=== PATIENT | female | born 1950 | race Caucasian/White ===

== ENCOUNTER 2020-01-23 18:53 | Inpatient (IN) | payer MEDICARE, BC ==
[~2020-01-23] VITALS: Ht 165.1 cm; Wt 70.3 kg
--- NOTE | 2020-01-23 19:07 | NUR ---
Covid swab sent to lab at this time
[2020-01-23] MEDS ORDERED: ACETAMINOPHEN ES 500 MG TABLET ONE (19:22)
--- NOTE | 2020-01-23 19:23 | NUR ---
security at bedside for 1 to 1 sitter
[2020-01-23] MEDS ORDERED: BUSP10TA3 PO (19:29)
[2020-01-23] MEDS ORDERED: NAPROXEN (19:29)
[2020-01-23] MEDS ORDERED: METO50TA16 PO (19:29)
[2020-01-23] MEDS ORDERED: SUMATRIPTAN PO (19:29)
[2020-01-23] MEDS ORDERED: ASPI81TA31 PO (19:29)
[2020-01-23] MEDS ORDERED: SUVO20TA PO (19:29)
[2020-01-23] MEDS ORDERED: HYDR-4354 PO (19:29)
[2020-01-23] MEDS ORDERED: ALPR0.5T8 PO (19:29)
[2020-01-23] MEDS ORDERED: NAPROXEN PO (19:29)
[2020-01-23] MEDS ORDERED: PROC10TA13 PO (19:29)
[2020-01-23] MEDS ORDERED: METO100T14 PO (19:29)
[2020-01-23] MEDS ORDERED: SUMATRIPTAN (19:29)
[2020-01-23] MEDS ORDERED: AMLO2.5T4 PO (19:29)
[2020-01-23] MEDS ORDERED: BUTO10SP NS (19:29)
[2020-01-23] MEDS ORDERED: SPIR25TA6 PO (19:29)
[2020-01-23] MEDS ORDERED: SUMA100T16 PO (19:29)
[2020-01-23] MEDS ORDERED: FLUO20TA28 PO (19:29)
--- NOTE | 2020-01-23 20:45 | NUR ---
meal provided to patient at this time, no signs of acute distress noted
--- NOTE | 2020-01-23 21:07 | NUR ---
report given to Amada RN from [facility]
[2020-01-23] MEDS ORDERED: ACETAMINOPHEN 325 MG TABLET PO ONE (21:15)
[2020-01-23 21:30] VITALS: BP 170/88
[2020-01-23] MEDS ORDERED: BLOOD SUGAR DIAGNOSTIC 1 EACH STRIP VI ONE (21:30)
[2020-01-23] MEDS ORDERED: MAGNESIUM HYDROXIDE 30 ML LIQUID UDC PO PRN (21:30)
[2020-01-23] MEDS ORDERED: MAG HYDROX/AL HYDROX/SIMETH 30 ML LIQUID UDC PO PRN (21:30)
--- NOTE | 2020-01-23 21:38 | NUR ---
Pt. admitted to [facility] , under care of Dr. Katz, report given to gift Belongs List completed and all belongings sent with patient
[2020-01-23] MEDS ORDERED: HYDROCODONE/APAP 10-325 MG TABLET PO SCH (23:00)
[2020-01-23] MEDS: METOPROLOL TARTRATE 50 MG TABLET PO SCH (23:00)
--- NOTE | 2020-01-23 23:31 | NUR ---
GPS/Rn - New admit female brought to [facility]HU from ER via W/C and accompanied by ER staffs. Pt admitted on a 5151 hold for GD under the care of Dr Katz, and Dr Brooks with Dx of Psychosis. Per hold pet attempted SI twice at home after her had a major Stroke. Upon face to face interview, pt denied SI or intent to harm self or others. Per patient I only did that because my was gone and they took him to a [facility] nursing facility and I was just upset and lonely!. Pt said she will never do that again! Patient is a/o x4 and fair insight and thought processing. Patient understand why she is admitted. Hx diagnosis: HTN, Hyperlipidemia, Migraines, Anxiety, Depression. Per ER dept pt c/o headache and Tyl 1000mg was given at about 2030. Pt blood pressure was noted elevated at 170/88, pt said her headache feels better now and PRN order placed for HTN. Will monitor pt while in bed laying. Pt Rights handbook and Advisement given and unit rules explained, pt demonstrated understanding and signed all admission papers.Although pt has denied SI, CFS, HI from admission but due to episode of attempted overdose per 5150 hold. Q/15 minute safety checks initiated and behavioral health referral to be given upon discharge per facility protocol.
--- NOTE | 2020-01-24 04:40 | NUR ---
Pt blood pressure was elevated upon admission. Order was received clarified late and pt fall asleep and refused med. Will recheck in am and monitor.
[2020-01-24 06:52] LABS: BASOPHILS % (AUTO) 0.4 % (0.0-2.0); EOSINOPHILS # (AUTO) 0.1 K/uL (0.0-0.7); EOSINOPHILS % (AUTO) 1.4 % (0.0-7.0); HEMATOCRIT 35.8 % (31.2-41.9); HEMOGLOBIN 12.4 g/dL (10.9-14.3); LYMPHOCYTES # (AUTO) 1.6 K/uL (20.0-40.0); LYMPHOCYTES % (AUTO) 25.8 % (20.5-51.5); MEAN CORPUSCULAR HEMOGLOBIN 32.7 uug (24.7-32.8); MEAN CORPUSCULAR HGB CONC 35 g/dL (32.3-35.6); MEAN CORPUSCULAR VOLUME 94.4 fL (75.5-95.3); MONOCYTES % (AUTO) 15.3 % (0.0-11.0); NEUTROPHILS # (AUTO) 3.6 K/uL (1.8-8.9); NEUTROPHILS % (AUTO) 57.1 % (38.5-71.5); PLATELET COUNT (AUTO) 288 K/uL (179-408); RED BLOOD CELL COUNT(AUTO) 3.79 MIL/uL (3.63-4.92); WHITE BLOOD COUNT (AUTO) 6.3 K/uL (3.8-11.8)
[2020-01-24 07:17] LABS: THYROID STIMULATING HORMONE 2.566 mIU/mL (0.358-3.740)
[2020-01-24 07:19] LABS: BILIRUBIN,TOTAL 0.3 mg/dL (0.2-1.0); CREATININE 0.9 mg/dL (0.6-1.3); PHOSPHOROUS 2.4 mg/dL (2.5-4.9); POTASSIUM 3.9 mmol/L (3.5-5.1); TOTAL PROTEIN, SERUM 6.5 g/dL (6.4-8.2)
[2020-01-24 07:45] VITALS: BP 156/82
[2020-01-24] MEDS: METOPROLOL TARTRATE 50 MG TABLET PO SCH ×2 (08:58→20:03)
[2020-01-24] MEDS: ASPIRIN 81 MG TAB.CHEW PO SCH (08:58)
[2020-01-24] MEDS: SPIRONOLACTONE 25 MG TABLET PO SCH (09:00)
[2020-01-24] MEDS: AMLODIPINE 2.5 MG TABLET PO SCH (09:00)
--- NOTE | 2020-01-24 10:16 | NUR ---
SW Initial Discharge Note: Patient currently resides at [address] [place] [address];([phone]). Currently, she lives alone at home and her is at SNF recovering from a stroke. Patient wants to return back home upon discharge. Patient's brother in law Richard ([phone]) is involved in pt's care. This commercial insurance underwriter will work with the MD, Treatment team, and family to help coordinate proper discharge.
--- NOTE | 2020-01-24 10:20 | NUR ---
Firearms Report: Shower [employer] Pan[employer] Fabricator completed and submitted a [employer] firearms report for 5150 grave disability certification. A copy of report has been placed in patient chart.
--- NOTE | 2020-01-24 10:33 | NUR ---
SW Family Contact: This script writer contacted patient's zvjqszh-um-twi Richard ([phone]) and attempted to discuss collateral, however, Richard was unavailable and mailbox was not set. This script writer will attempt to contact again.
[2020-01-24] MEDS: CLONAZEPAM 0.5 MG TABLET PO PRN ×2 (12:22→18:26)
[2020-01-24] MEDS: ACETAMINOPHEN 325 MG TABLET PO PRN ×2 (12:22→21:18)
[2020-01-24 15:07] LABS: EOSINOPHILS % (MANUAL) 2 % (0-8); LYMPHOCYTES % (MANUAL) 21 % (20-40); MONOCYTES % (MANUAL) 16 % (2-10); NEUTROPHILS % (MANUAL) 61 % (42-75)
[2020-01-24 16:09] VITALS: BP 167/76
[2020-01-24] MEDS: busPIRone 10 MG TABLET PO SCH (17:22)
[2020-01-24] MEDS: FLUOXETINE HCL 20 MG CAPSULE PO SCH (17:24)
--- NOTE | 2020-01-24 17:51 | NUR ---
GPS: Patient has been compliant with medications and medical care. Patient seems depressed but denies SI. Continuing to monitor for safety or increase in depression. None noted at this time.
[2020-01-24 19:37] VITALS: BP 106/58
[2020-01-24 19:50] VITALS: BP 156/86
[2020-01-24 19:52] VITALS: BP 151/86
[2020-01-24] MEDS: TEMAZEPAM 7.5 MG CAPSULE PO PRN (21:19)
[2020-01-25] MEDS: CLONAZEPAM 0.5 MG TABLET PO PRN ×3 (01:42→20:23)
--- NOTE | 2020-01-25 06:30 | NUR ---
GPS - Pt had some anxiety during shift, c/o unable to sleep and PRN was given with some effect. Pt later said she is not feeling well because she is having too much headache and requested Klonopin. Administered and pt was noted resting. Pt also hard migraine headache and said she will like to have Imitrex, informed will notify MD. Cooperative with other care and continue monitor. Pt was agitated and easily irritated frequently.
[2020-01-25 07:30] VITALS: BP 151/78
[2020-01-25] MEDS: FLUOXETINE HCL 20 MG CAPSULE PO SCH (08:23)
[2020-01-25] MEDS: METOPROLOL TARTRATE 50 MG TABLET PO SCH ×2 (08:23→20:18)
[2020-01-25] MEDS: SPIRONOLACTONE 25 MG TABLET PO SCH (08:23)
[2020-01-25] MEDS: ASPIRIN 81 MG TAB.CHEW PO SCH (08:23)
[2020-01-25] MEDS: busPIRone 10 MG TABLET PO SCH ×2 (08:23→16:51)
[2020-01-25] MEDS: AMLODIPINE 2.5 MG TABLET PO SCH (08:25)
[2020-01-25] MEDS: ACETAMINOPHEN 325 MG TABLET PO PRN ×2 (08:36→14:27)
--- NOTE | 2020-01-25 13:21 | NUR ---
SW Family Contact: This senior copywriter contacted patient's gpmefkx-xr-you Richard ([phone]) and discussed treatment and discharge plan. Per Richard, he stated he would want a 48 hour notification to when pt will dc because family will be coming down from [place].
[2020-01-25 16:00] VITALS: BP 137/71
[2020-01-25 20:37] VITALS: BP 149/79
--- NOTE | 2020-01-25 23:00 | NUR ---
Pt trying to find her eyeglasses. Told the pt I didn't see her with her eyeglasses when she asked for her medications and when she asked me to make the temperature warmer earlier. Staff searched for her eyeglasses, moved the bed and checked the bathroom and even trashcan but no eyeglasses found. Will continue to search in the morning.
[2020-01-25] MEDS: TEMAZEPAM 7.5 MG CAPSULE PO PRN (23:22)
--- NOTE | 2020-01-26 06:52 | NUR ---
PT SLEPT 4.30 HOURS. PT IN NO ACUTE DISTRESS. PRESCRIBED MEDICATION GIVEN AND PT TOLERATED IT WELL. PT PLEASANT WHEN APPROACHED. COOPERATIVE WITH CARE. PT GIVEN KLONOPIN AT 2022H FOR ANXIETY. AFTER AN HOUR PT BEHAVIOR AND MOOD IMPROVED. PT TOLERATED IT WELL. PT GIVEN RESTORIL AT 2H PER PT REQUEST AND PT ANXIOUS BECAUSE OF HER EYEGLASSES.PT SLEPT ON AND OFF. STAFF CONTINUOUSLY SEARCHED FOR EYEGLASSES IN THE ROOM, UNDER THE BED, BATHROOM , EVEN IN THE TRASH. SEARCHED ALSO IN OTHER PATIENTS ROOM AND COMMON ROOMS. WE WILL ENDORSE TO INCOMING NURSES FOR CONTINUATION OF SEARCHING FOR HER EYEGLASSES. SAFETY AND COMFORT PROVIDED. ALL NEEDS ARE MET.
[2020-01-26 08:50] VITALS: BP 157/88
[2020-01-26] MEDS: AMLODIPINE 2.5 MG TABLET PO SCH (09:00)
[2020-01-26] MEDS: FLUOXETINE HCL 20 MG CAPSULE PO SCH (09:00)
[2020-01-26] MEDS: ASPIRIN 81 MG TAB.CHEW PO SCH (09:00)
[2020-01-26] MEDS: METOPROLOL TARTRATE 50 MG TABLET PO SCH ×2 (09:01→20:04)
[2020-01-26] MEDS: busPIRone 10 MG TABLET PO SCH ×2 (09:01→16:47)
[2020-01-26] MEDS: SPIRONOLACTONE 25 MG TABLET PO SCH (09:01)
[2020-01-26] MEDS: HYDROCODONE/APAP 10-325 MG TABLET PO PRN ×2 (10:24→20:03)
--- NOTE | 2020-01-26 11:09 | NUR ---
PC Hearing: Patient had her probable cause hearing today and was upheld for danger to self and grave disability.
[2020-01-26 15:05] VITALS: BP 169/84
--- NOTE | 2020-01-26 18:06 | NUR ---
Gps/Dental Equipment Repairer-Patient claimed she does not want to take any sleeping pill tonight , it makes her jittery per pt., but will take ativan po. if necessary.Patient's eye glasses was found , kept by one of her peers. requesting to have her glasses to be kept at the Nurses station or her locker, and will ask for it if needed.
[2020-01-26 20:00] VITALS: BP 169/74
[2020-01-26] MEDS: CLONAZEPAM 0.5 MG TABLET PO PRN (23:01)
[2020-01-27 07:30] VITALS: BP 125/57
[2020-01-27] MEDS: ASPIRIN 81 MG TAB.CHEW PO SCH (09:29)
[2020-01-27] MEDS: FLUOXETINE HCL 20 MG CAPSULE PO SCH (09:29)
[2020-01-27] MEDS: METOPROLOL TARTRATE 50 MG TABLET PO SCH ×2 (09:29→20:48)
[2020-01-27] MEDS: SPIRONOLACTONE 25 MG TABLET PO SCH (09:30)
[2020-01-27] MEDS: busPIRone 10 MG TABLET PO SCH ×2 (09:30→16:56)
[2020-01-27] MEDS: AMLODIPINE 2.5 MG TABLET PO SCH (09:30)
--- NOTE | 2020-01-27 09:33 | NUR ---
Coordination of Care: Patient will follow up with Dr. Vickers located [address] [place], [place] [id number]; ([phone]) on February 13 at 9:45AM. This health underwriter spoke with Jane receptionist/telephone operator who arranged appointment. This health underwriter contacted (psychiatrist) Dr. Miles ([phone]) and left a voicemail.
[2020-01-27] MEDS: ACETAMINOPHEN 325 MG TABLET PO PRN (11:37)
--- NOTE | 2020-01-27 11:47 | NUR ---
[facility] Outpatient Psychiatrist: This resume writer received a phone call from pt's outpatient psychiatrist Dr. Miles ([phone]) who stated she was concerned for pt. She expressed she does not want the pt to be discharged too soon until more stabilized. This resume writer forwarded this information to Dr. Katz.
[2020-01-27 16:00] VITALS: BP 160/58
[2020-01-27] MEDS: HYDROCODONE/APAP 10-325 MG TABLET PO PRN (17:01)
[2020-01-27 20:13] VITALS: BP 150/77
[2020-01-27] MEDS: CLONAZEPAM 0.5 MG TABLET PO PRN (21:00)
[2020-01-27] MEDS: TEMAZEPAM 7.5 MG CAPSULE PO PRN (22:30)
[2020-01-28] MEDS: CLONAZEPAM 0.5 MG TABLET PO PRN ×3 (03:48→20:10)
[2020-01-28 07:30] VITALS: BP_SYST 111; BP_SYST 162; BP_DIAS 66; BP_DIAS 71
[2020-01-28] MEDS: SPIRONOLACTONE 25 MG TABLET PO SCH (08:43)
[2020-01-28] MEDS: ASPIRIN 81 MG TAB.CHEW PO SCH (08:43)
[2020-01-28] MEDS: busPIRone 10 MG TABLET PO SCH ×2 (08:43→16:51)
[2020-01-28] MEDS: AMLODIPINE 2.5 MG TABLET PO SCH (08:44)
[2020-01-28] MEDS: FLUOXETINE HCL 20 MG CAPSULE PO SCH (08:44)
[2020-01-28] MEDS: METOPROLOL TARTRATE 50 MG TABLET PO SCH ×2 (08:45→20:09)
[2020-01-28 16:00] VITALS: BP 148/70
[2020-01-28] MEDS: HYDROCODONE/APAP 10-325 MG TABLET PO PRN (16:52)
[2020-01-28 20:30] VITALS: BP 162/79
[2020-01-28] MEDS: TEMAZEPAM 7.5 MG CAPSULE PO PRN (22:55)
[2020-01-28] MEDS: ACETAMINOPHEN 325 MG TABLET PO PRN (23:38)
--- NOTE | 2020-01-29 06:29 | NUR ---
GPS/RN: Slept 7.30 hours. Very compliant on her medications. Medicated once with Tylenol for complaint of headache. No further complaint presented. BP down to 129/73 this time.
[2020-01-29] MEDS: HYDROCODONE/APAP 10-325 MG TABLET PO PRN ×3 (06:53→20:26)
[2020-01-29 07:30] VITALS: BP 141/71
[2020-01-29] MEDS: METOPROLOL TARTRATE 50 MG TABLET PO SCH ×2 (09:07→20:25)
[2020-01-29] MEDS: AMLODIPINE 2.5 MG TABLET PO SCH (09:07)
[2020-01-29] MEDS: FLUOXETINE HCL 20 MG CAPSULE PO SCH (09:08)
[2020-01-29] MEDS: ASPIRIN 81 MG TAB.CHEW PO SCH (09:08)
[2020-01-29] MEDS: busPIRone 10 MG TABLET PO SCH ×2 (09:08→16:42)
[2020-01-29] MEDS: SPIRONOLACTONE 25 MG TABLET PO SCH (09:08)
[2020-01-29] MEDS: CLONAZEPAM 0.5 MG TABLET PO PRN ×2 (09:09→16:35)
[2020-01-29 10:51] LABS: *BILIRUBIN,URIN NEGATIVE (NEGATIVE); *BLOOD, URINE NEGATIVE (NEGATIVE); *CLARITY,URINE CLEAR (CLEAR); *COLOR,URINE LIGHT YELLOW (YELLOW); *KETONES,URINE NEGATIVE (NEGATIVE); *UROBILINOGEN,URINE 0.2 E.U./dl (NORMAL); LEUKOCYTE ESTERASE ,URINE NEGATIVE (NEGATIVE); NITRITE, URINE NEGATIVE (NEGATIVE); UGLUCOSE NEGATIVE (NEGATIVE)
[2020-01-29] MEDS ORDERED: TRAZODONE 50 MG TABLET PO PRN (12:30)
[2020-01-29 17:03] VITALS: BP 145/80
[2020-01-29 20:00] VITALS: BP 140/72
[2020-01-30 07:30] VITALS: BP 156/73
[2020-01-30] MEDS: METOPROLOL TARTRATE 50 MG TABLET PO SCH ×2 (08:29→20:39)
[2020-01-30] MEDS: SPIRONOLACTONE 25 MG TABLET PO SCH (08:30)
[2020-01-30] MEDS: ASPIRIN 81 MG TAB.CHEW PO SCH (08:30)
[2020-01-30] MEDS: AMLODIPINE 2.5 MG TABLET PO SCH (08:30)
[2020-01-30] MEDS: FLUOXETINE HCL 20 MG CAPSULE PO SCH (08:30)
[2020-01-30] MEDS: busPIRone 10 MG TABLET PO SCH ×2 (08:30→17:32)
--- NOTE | 2020-01-30 09:03 | NUR ---
Family Contact: Patient's yekahnr-wi-mib Richard ([phone]) contacted the SW and stated that he wants to be notified ahead of time regarding the pts discharge. SW stated that she will reach out to the MD, Dr. Katz, regarding the pts discharge plan and then inform the pt as well.
[2020-01-30] MEDS: HYDROCODONE/APAP 10-325 MG TABLET PO PRN ×2 (10:23→20:42)
[2020-01-30] MEDS: CLONAZEPAM 0.5 MG TABLET PO PRN (15:45)
[2020-01-30 15:51] VITALS: BP 144/83
[2020-01-30 20:20] VITALS: BP 178/81
[2020-01-30] MEDS: TEMAZEPAM 7.5 MG CAPSULE PO PRN (23:44)
[2020-01-31 07:30] VITALS: BP 112/63
[2020-01-31] MEDS: SPIRONOLACTONE 25 MG TABLET PO SCH (08:59)
[2020-01-31] MEDS: ASPIRIN 81 MG TAB.CHEW PO SCH (08:59)
[2020-01-31] MEDS: FLUOXETINE HCL 20 MG CAPSULE PO SCH (08:59)
[2020-01-31] MEDS: busPIRone 10 MG TABLET PO SCH ×2 (08:59→16:49)
[2020-01-31] MEDS: AMLODIPINE 2.5 MG TABLET PO SCH (09:00)
[2020-01-31] MEDS: METOPROLOL TARTRATE 50 MG TABLET PO SCH ×2 (09:00→20:02)
[2020-01-31] MEDS: HYDROCODONE/APAP 10-325 MG TABLET PO PRN (09:57)
[2020-01-31 16:37] VITALS: BP 139/62
[2020-01-31 20:04] VITALS: BP 147/72
[2020-01-31] MEDS: SUMATRIPTAN SUCCINATE 50 MG TABLET PO PRN (20:24)
--- NOTE | 2020-01-31 20:25 | NUR ---
Received patient in her room in bed. She is noted awake A/O x 3. ambulatory. She is able to verbalized feelings. She c/o a headache. Imitrex 50mg PO PRN was given. will monitor for results. Patient noted with depressed mood, Blunted affect. She denies SI/HI/VH/AH. she is able to CFS. V/s stable. pt is reassured for her safety. safety and fall precautions in place. will continue to monitor.
[2020-01-31] MEDS: ATORVASTATIN 10 MG TABLET PO SCH (21:13)
[2020-01-31] MEDS: TEMAZEPAM 7.5 MG CAPSULE PO PRN (21:44)
[2020-02-01 07:30] VITALS: BP 157/67
[2020-02-01] MEDS: ASPIRIN 81 MG TAB.CHEW PO SCH (08:51)
[2020-02-01] MEDS: METOPROLOL TARTRATE 50 MG TABLET PO SCH (08:52)
[2020-02-01] MEDS: FLUOXETINE HCL 20 MG CAPSULE PO SCH (08:52)
[2020-02-01] MEDS: AMLODIPINE 2.5 MG TABLET PO SCH (08:58)
[2020-02-01] MEDS: SPIRONOLACTONE 25 MG TABLET PO SCH (08:59)
[2020-02-01] MEDS: busPIRone 10 MG TABLET PO SCH ×2 (08:59→17:33)
[2020-02-01] MEDS: SUMATRIPTAN SUCCINATE 50 MG TABLET PO PRN ×2 (09:00→18:20)
--- NOTE | 2020-02-01 09:11 | NUR ---
Individual Intervention with the Pt: SW met with the pt in her room and stated that she is going to be discharged on Thursday. Pt stated that she was so happy to hear that and she is looking forward to Thursday. Pt stated that she had a change of attitude over the weekend and stated that she is not going to focus on things that she cannot change and learn to accept that and she will only focus on herself because that is the only thing that she can change.
--- NOTE | 2020-02-01 10:03 | NUR ---
Family Contact: SW called the pts gykrmii-av-scp Richard ([phone]) and informed him that the pt is going to be discharged on Thursday. Pts brother in law stated that he will call the SW back and inform her of the time that he can come and pick her up.
[2020-02-01] MEDS: DOCUSATE SODIUM 100 MG CAPSULE PO SCH ×2 (12:02→20:16)
[2020-02-01] MEDS: AMLODIPINE 5 MG TABLET PO SCH (12:03)
[2020-02-01] MEDS: CLONAZEPAM 0.5 MG TABLET PO PRN ×2 (12:03→23:27)
--- NOTE | 2020-02-01 12:08 | NUR ---
Family Contact: Patient's nxrtbpj-fe-coe Richard ([phone]) contacted the SW and informed the SW that he spoke to the pts sister in law, Licha ([phone]), will pick the pt up on Thursday. Pts brother in law also stated that the pts psychiatrist will be making appointments to see the pt.
--- NOTE | 2020-02-01 12:10 | NUR ---
Family Contact: SW called the pts sister in law, Licha ([phone]), and left a voicemail stating that the pt is going to be discharged on Thursday and would like to arrange the transportation time.
--- NOTE | 2020-02-01 12:13 | NUR ---
Outpatient Psychiatrist Contact: SW called pt's outpatient psychiatrist Dr. Miles ([phone]), and left a voicemail stating that the SW would like to set up aftercare.
[2020-02-01 16:00] VITALS: BP 142/61
[2020-02-01] MEDS: HYDROCODONE/APAP 10-325 MG TABLET PO PRN (17:33)
[2020-02-01] MEDS: ARIPIPRAZOLE 5 MG TABLET PO SCH (17:33)
[2020-02-01 20:11] VITALS: BP 146/73
[2020-02-01] MEDS: ATORVASTATIN 10 MG TABLET PO SCH (20:16)
[2020-02-01] MEDS: TEMAZEPAM 7.5 MG CAPSULE PO PRN (21:41)
[2020-02-02] MEDS: SUMATRIPTAN SUCCINATE 50 MG TABLET PO PRN ×3 (06:29→20:14)
[2020-02-02] MEDS ORDERED: SUMATRIPTAN SUCCINATE 50 MG TABLET ONE (06:29)
--- NOTE | 2020-02-02 06:52 | NUR ---
Patient slept for approx 7.30 hrs through the night. She c/o headaches, Imitrex 50mg PO PRN was given. will continue to monitor.
[2020-02-02 07:30] VITALS: BP 162/75
[2020-02-02] MEDS ORDERED: SUMATRIPTAN SUCCINATE 50 MG TABLET PO ONE (07:40)
[2020-02-02] MEDS: FLUOXETINE HCL 20 MG CAPSULE PO SCH (08:55)
[2020-02-02] MEDS: ARIPIPRAZOLE 5 MG TABLET PO SCH (08:55)
[2020-02-02] MEDS: ASPIRIN 81 MG TAB.CHEW PO SCH (08:55)
[2020-02-02] MEDS: SPIRONOLACTONE 25 MG TABLET PO SCH (08:56)
[2020-02-02] MEDS: DOCUSATE SODIUM 100 MG CAPSULE PO SCH ×2 (08:56→20:14)
[2020-02-02] MEDS: busPIRone 10 MG TABLET PO SCH ×2 (08:56→16:21)
[2020-02-02] MEDS: METOPROLOL TARTRATE 50 MG TABLET PO SCH (08:57)
[2020-02-02] MEDS: AMLODIPINE 5 MG TABLET PO SCH ×2 (08:57→20:14)
[2020-02-02] MEDS: CLONAZEPAM 0.5 MG TABLET PO PRN ×2 (11:45→20:15)
--- NOTE | 2020-02-02 14:02 | NUR ---
Family Contact: SW called the pts sister in law, Licha ([phone]), and she stated that she will sheepskin pickler the pt around 5pm.
--- NOTE | 2020-02-02 14:08 | NUR ---
Outpatient Psychiatrist Contact: SW called pt's outpatient psychiatrist Dr. Miles ([phone]), and made an appointment for the pt and then faxed the paperwork to [phone].
--- NOTE | 2020-02-02 15:00 | NUR ---
Gps/Ehr Trainer Had been complaining of migraine headache, requesting imitrex 50 mg , po, also uses eye gutiérrez patient's own room dimmed , claimed light bothered her gives her more headaches. Isolative staying in her room most of the time, comes out of her room to Nurses Station for her needs.
[2020-02-02] MEDS: HYDROCODONE/APAP 10-325 MG TABLET PO PRN (16:18)
[2020-02-02 16:28] VITALS: BP 164/76
[2020-02-02] MEDS: ATORVASTATIN 10 MG TABLET PO SCH (20:14)
[2020-02-02] MEDS: TEMAZEPAM 7.5 MG CAPSULE PO PRN (23:22)
[2020-02-03] MEDS: HYDROCODONE/APAP 10-325 MG TABLET PO PRN ×2 (06:23→16:47)
[2020-02-03] MEDS: FLUOXETINE HCL 20 MG CAPSULE PO SCH (08:15)
[2020-02-03] MEDS: ASPIRIN 81 MG TAB.CHEW PO SCH (08:16)
[2020-02-03] MEDS: METOPROLOL TARTRATE 50 MG TABLET PO SCH (08:16)
[2020-02-03] MEDS: SPIRONOLACTONE 25 MG TABLET PO SCH (08:17)
[2020-02-03] MEDS: AMLODIPINE 5 MG TABLET PO SCH (08:17)
[2020-02-03] MEDS: busPIRone 10 MG TABLET PO SCH ×2 (08:17→16:47)
[2020-02-03] MEDS: ARIPIPRAZOLE 5 MG TABLET PO SCH (08:17)
[2020-02-03] MEDS: DOCUSATE SODIUM 100 MG CAPSULE PO SCH (08:18)
[2020-02-03 08:30] VITALS: BP 144/77
--- NOTE | 2020-02-03 08:38 | NUR ---
Discharge Note: Pt was discharged back to her home located at [address], [place] [address];([phone]). Pt was picked up by her sister in law, Licha ([phone]), at 5pm. Upon discharge, the pt appeared to be in a euthymic mood and presented with an uplifted affect. Pt appeared to be alert and oriented x4 (time, place, self and situation). Pt denied both suicidal and homicidal ideation as well as auditory and visual hallucinations. Pt appeared to be well groomed and appropriately dressed. Pt appeared to be ambulatory with a steady gait. Pt will be under the care of her special education itinerant teacher, Dr. Vickers, located [address] [facility] [address]; ([phone]) and pt has an appointment on February 13 at 9:45AM. Pt will also be under the care of her psychiatrist, Dr. Miles ([phone]) fax: [phone]), located at [address] [facility] [address], [place] [address]. Pt has an appointment on 02/09/20 at 2:30pm.
[2020-02-03] MEDS: SUMATRIPTAN SUCCINATE 50 MG TABLET PO PRN (09:49)
[2020-02-03] MEDS: CLONAZEPAM 0.5 MG TABLET PO PRN (09:56)
[2020-02-03 15:27] VITALS: BP 144/66
--- NOTE | 2020-02-03 16:56 | NUR ---
Gps/Lvvn- All belongings given back and signed by patient,. called couple of times to talked to patient. reviewed discharged instructions, including follow up with her Psychiatrist Dr Miles and Income Tax Auditor Dr Marinelli , reviewed medications and prescriptions, , skin care and diet, verbalized understanding . Patient looking forward to her discharged . In good spirit, no new complaints noted.
--- NOTE | 2020-02-03 17:18 | NUR ---
Gps/Section Housekeeper- Sister-in law Shanelle here to transport patient to home. All belongings given back to patient sandwich juices, bottles water provided to patient r/t to long drive . Patient verbalized adequate relief from her pain .Discharged in good spirit, via private car, no new complaints noted.
== END 2020-02-03 17:22 | disposition home or self-care (01) | DRG 885 ==
LOC: ER 18:53 → GPS 21:16
PROVIDERS: ADMIT Psychiatry & Neurology Psychiatry; ATTEND Student in an Organized Health Care Education/Training Program
DX: F33.2 Major depressive disorder, recurrent severe without psychotic features (principal); E44.1 Mild protein-calorie malnutrition; E87.1 Hypo-osmolality and hyponatremia; E78.5 Hyperlipidemia, unspecified; T50.912D Poisoning by multiple unspecified drugs, medicaments and biological substances, intentional self-harm, subsequent encounter; F41.9 Anxiety disorder, unspecified; G43.909 Migraine, unspecified, not intractable, without status migrainosus; E88.09 Other disorders of plasma-protein metabolism, not elsewhere classified; Z68.25 Body mass index [BMI] 25.0-25.9, adult; I11.9 Hypertensive heart disease without heart failure
CPT/HCPCS: 36415; 70030-TC; 83735; 84100; 84443; 85025; A4663; A9150